=== PATIENT | female | born 1945 | race Caucasian/White ===

== ENCOUNTER → 2023-06-04 08:58 | Outpatient (REF) | payer OTHER, SELFPAY ==
[2023-06-04 12:19] LABS: ALT (SGPT) 40 U/L (0-35); AST (SGOT) 45 U/L (14-36); Albumin 4.2 g/dl (3.5-5.0); Alkaline Phosphatase 67 U/L (38-126); Blood Urea Nitrogen 37 mg/dl (7-17); Calcium 10.5 mg/dl (8.4-10.2); Carbon Dioxide 32 mmol/L (22-30); Chloride 95 mmol/L (98-107); Glucose 67 mg/dl (70-99); Sodium 133 mmol/L (135-145); Total Bilirubin 0.5 mg/dl (0.2-1.3); Total Protein 6.8 g/dl (6.3-8.2); eGFR > 60.00
[2023-06-04 12:34] LABS: Potassium 4.4 mmol/L (3.5-5.1)
== END ==
LOC: HWLAB 08:58
PROVIDERS: ATTENDING PHYSICIAN Nurse Practitioner
DX: R79.89 Other specified abnormal findings of blood chemistry (principal)
CPT/HCPCS: 36415; 80053

== ENCOUNTER → 2023-06-11 14:01 | Outpatient (REF) | payer OTHER, SELFPAY | LOC: HWWDC 14:01 | PROVIDERS: ATTENDING PHYSICIAN Nurse Practitioner | DX: Z12.31 Encounter for screening mammogram for malignant neoplasm of breast (principal) | CPT/HCPCS: 77063; 77067 ==

== ENCOUNTER → 2023-07-03 08:41 | Outpatient (REF) | payer OTHER, SELFPAY ==
[2023-07-03 14:09] LABS: ALT (SGPT) 41 U/L (0-35); AST (SGOT) 39 U/L (14-36); Albumin 4.3 g/dl (3.5-5.0); Alkaline Phosphatase 73 U/L (38-126); Blood Urea Nitrogen 32 mg/dl (7-17); Calcium 10.2 mg/dl (8.4-10.2); Carbon Dioxide 30 mmol/L (22-30); Chloride 100 mmol/L (98-107); Glucose 72 mg/dl (70-99); Sodium 134 mmol/L (135-145); Total Bilirubin 0.5 mg/dl (0.2-1.3); eGFR > 60.00
== END ==
LOC: HWLAB 08:41
PROVIDERS: ATTENDING PHYSICIAN Nurse Practitioner
DX: N28.9 Disorder of kidney and ureter, unspecified (principal); R79.89 Other specified abnormal findings of blood chemistry
CPT/HCPCS: 80053

== ENCOUNTER → 2023-10-07 12:24 | Outpatient (REF) | payer OTHER, SELFPAY | LOC: WDC 12:24 | PROVIDERS: ATTENDING PHYSICIAN Nurse Practitioner | DX: R92.2 Inconclusive mammogram (principal); R92.343 Mammographic extreme density, bilateral breasts | CPT/HCPCS: 76641 ==

== ENCOUNTER → 2023-11-20 09:10 | Outpatient (REF) | payer OTHER, SELFPAY ==
[2023-11-20 12:56] LABS: ALT (SGPT) 29 U/L (0-35); AST (SGOT) 37 U/L (14-36); Albumin 4.2 g/dl (3.5-5.0); Alkaline Phosphatase 72 U/L (38-126); Blood Urea Nitrogen 33 mg/dl (7-17); Carbon Dioxide 29 mmol/L (22-30); Chloride 98 mmol/L (98-107); Glucose 77 mg/dl (70-99); Potassium 4.6 mmol/L (3.5-5.1); Sodium 138 mmol/L (135-145); Total Bilirubin 0.4 mg/dl (0.2-1.3); Total Protein 6.8 g/dl (6.3-8.2); eGFR > 60.00
== END ==
LOC: HWLAB 09:10
PROVIDERS: ATTENDING PHYSICIAN Nurse Practitioner
DX: R79.89 Other specified abnormal findings of blood chemistry (principal); R79.9 Abnormal finding of blood chemistry, unspecified
CPT/HCPCS: 36415; 80053

== ENCOUNTER → 2024-06-03 08:06 | Outpatient (REF) | payer OTHER, SELFPAY ==
[2024-06-03 09:53] LABS: % Basophils 1.4 % (0-2); % Eosinophils 0.5 % (0-6); % Lymphocytes 32.6 % (20.5-51.1); % Monocytes 8.4 % (1.7-9.3); % Neutrophils 57.1 % (42.2-75.2); Absolute Basophils 0.1 10^3/uL (0-0.2); Absolute Lymphocytes 1.4 10^3/uL (1.2-3.4); Absolute Monocytes 0.4 10^3/uL (0.1-0.6); Absolute Neutrophils 2.5 10^3/uL (1.4-6.5); Hematocrit 38.1 % (37.0-47.0); Hemoglobin 12.7 g/dL (12.0-16.0); Mean Corp Hgb Conc. 33.3 g/dL (33.0-37.0); Mean Corpuscular Hgb 30.7 pg (27.0-31.0); Mean Platelet Volume 9.6 fL (7.4-10.4); Nucleated Red Blood Cells % 0 %; Platelet Count 273 10^3/uL (130-400); Red Blood Cell Count 4.14 10^6/uL (4.20-5.40); Red Cell Dist. Width 12.9 % (11.5-14.5); White Blood Cell Count 4.3 10^3/uL (4.8-10.8)
[2024-06-03 10:12] LABS: ALT (SGPT) 37 U/L (0-35); AST (SGOT) 34 U/L (14-36); Albumin 4.7 g/dl (3.5-5.0); Alkaline Phosphatase 66 U/L (38-126); Blood Urea Nitrogen 34 mg/dl (7-17); Calcium 9.7 mg/dl (8.4-10.2); Carbon Dioxide 30 mmol/L (22-30); Chloride 99 mmol/L (98-107); Glucose 87 mg/dl (70-99); HDL Cholesterol 89 mg/dl; LDL Cholesterol, Calculated 136 mg/dl; Potassium 4.6 mmol/L (3.5-5.1); Sodium 136 mmol/L (135-145); Total Bilirubin 0.7 mg/dl (0.2-1.3); Total Cholesterol 242 mg/dl (50-199); Total Protein 7.1 g/dl (6.3-8.2); Triglyceride 87 mg/dl (10-149); Very Low Density Lipoprotein 17 mg/dl (0-30); eGFR > 60.00
== END ==
LOC: HWLAB 08:06
DX: N39.41 Urge incontinence (principal); M54.12 Radiculopathy, cervical region; R63.6 Underweight; E78.5 Hyperlipidemia, unspecified
CPT/HCPCS: 36415; 80053; 80061; 85025

== ENCOUNTER → 2024-07-21 09:11 | Outpatient (REF) | payer OTHER, SELFPAY ==
[2024-07-21 17:06] LABS: Urine Albumin Negative (Neg - Trace); Urine Bilirubin Negative (Negative); Urine Character Clear (Clear); Urine Color Yellow; Urine Glucose Negative (Negative); Urine Ketone Negative (Negative); Urine Leukocyte Negative (Negative); Urine Nitrite Negative (Negative); Urine Occult Blood Negative (Negative); Urine Urobilinogen Negative (Neg - 1+)
== END ==
LOC: CLAB 09:11
PROVIDERS: ATTENDING PHYSICIAN Nurse Practitioner
DX: N39.0 Urinary tract infection, site not specified (principal)
CPT/HCPCS: 81003; 87086

== ENCOUNTER → 2024-09-15 09:34 | Outpatient (REF) | payer OTHER, SELFPAY ==
[2024-09-15 12:55] LABS: Hematocrit 35.7 % (37.0-47.0); Hemoglobin 11.8 g/dL (12.0-16.0); Mean Corp Hgb Conc. 33.1 g/dL (33.0-37.0); Mean Corpuscular Volume 92.5 fL (81.0-99.0); Nucleated Red Blood Cells % 0 %; Platelet Count 256 10^3/uL (130-400); Red Cell Dist. Width 13.2 % (11.5-14.5)
[2024-09-15 13:45] LABS: ALT (SGPT) 50 U/L (0-35); AST (SGOT) 44 U/L (14-36); Albumin 4.5 g/dl (3.5-5.0); Alkaline Phosphatase 52 U/L (38-126); HDL Cholesterol 86 mg/dl; LDL Cholesterol, Calculated 64 mg/dl; Total Protein 6.8 g/dl (6.3-8.2); Very Low Density Lipoprotein 14 mg/dl (0-30)
== END ==
LOC: HWLAB 09:34
DX: D72.819 Decreased white blood cell count, unspecified (principal); E78.2 Mixed hyperlipidemia
CPT/HCPCS: 36415; 80061; 80076; 85025

== ENCOUNTER → 2024-10-21 09:24 | Outpatient (REF) | payer OTHER, SELFPAY ==
[2024-10-21 11:20] LABS: Hematocrit 33.4 % (37.0-47.0); Hemoglobin 11.3 g/dL (12.0-16.0); Mean Corp Hgb Conc. 33.8 g/dL (33.0-37.0); Mean Corpuscular Volume 92.0 fL (81.0-99.0); Nucleated Red Blood Cells % 0 %; Platelet Count 274 10^3/uL (130-400); Red Cell Dist. Width 13.2 % (11.5-14.5); Reticulocyte Count 1.1 % (0.4-2.8)
[2024-10-21 11:31] LABS: ALT (SGPT) 28 U/L (0-35); AST (SGOT) 28 U/L (14-36); Albumin 4.7 g/dl (3.5-5.0); Alkaline Phosphatase 53 U/L (38-126); Iron 121 ug/dl (37-170); Total Protein 7.0 g/dl (6.3-8.2)
[2024-10-21 11:35] LABS: C-Reactive Protein < 5.00 mg/L (0.0-10.00)
[2024-10-21 11:40] LABS: Total Iron Binding Capacity 258 ug/dl (265-497)
[2024-10-21 12:10] LABS: Ferritin 45.4 ng/ml (11.1-264.0)
[2024-10-21 12:42] LABS: Folate > 20.0 ng/ml (2.76-20); Vitamin B12 967 pg/ml (239-931)
== END ==
LOC: HWLAB 09:24
DX: D72.819 Decreased white blood cell count, unspecified (principal); D64.9 Anemia, unspecified; E78.2 Mixed hyperlipidemia
CPT/HCPCS: 36415; 80076; 82607; 82728; 82746; 83540; 83550; 85025; 85045; 85652; 86140